=== PATIENT | female | born 1955 ===

== ENCOUNTER 2018-11-18 05:10 | Inpatient (IN) | payer OTHER ==
[~2018-11-18] VITALS: Ht 167.6 cm; Wt 72.6 kg
[2018-11-18] VITALS (17 sets, daily range): BP systolic 115–136; BP diastolic 56–81
[~2018-11-18 05:10] MED LIST: ANASTROZOLE1 MG PO; ASPIR 8181 MG ORAL; ATORVASTATIN CA20 MG ORAL; OXYCODONE HCL10 MG ORAL; OXYCODONE20 MG/1 M1 ORAL; [UNRECOGNIZED DRUG - CODE] PO
[2018-11-18] MEDS ORDERED: HYDROcodone/Acetamin 7.5/325 tab ORAL PRN (06:15)
[2018-11-18] MEDS ORDERED: Hydromorphone 0.5mg/0.5ml inj IVP PRN (06:15)
[2018-11-18] MEDS ORDERED: DiphenhydrAMINE 50mg/ml Inj IVP PRN (06:15)
[2018-11-18] MEDS ORDERED: fentaNYL 100 mcg/2 mL IV PRN (06:15)
[2018-11-18] MEDS ORDERED: Metoclopramide 10mg/2ml Inj IVP PRN (06:15)
[2018-11-18] MEDS ORDERED: LR 1000ml 1,000 ML IVLG SCH (06:15)
[2018-11-18] MEDS ORDERED: Acetaminophen (Non formulary) 100 ML IV SCH (06:15)
[2018-11-18] MEDS ORDERED: LORazepam Inj 2mg/ml 1ml IV PRN (06:15)
[2018-11-18] MEDS ORDERED: Meperidine 50mg/ml Inj(FOR RIGORS ONLY) IVP PRN (06:15)
[2018-11-18] MEDS ORDERED: Ketorolac 30mg Inj IV PRN ×2 (06:15)
[2018-11-18] MEDS ORDERED: Atropine Sulfate 0.4mg/ml inj IVP PRN (06:15)
[2018-11-18] MEDS ORDERED: Midazolam 2mg/2ml Inj IVP PRN (06:15)
[2018-11-18] MEDS ORDERED: Norco 5mg/325mg tab ORAL PRN (06:15)
[2018-11-18] MEDS ORDERED: oxyCODONE HCL/Acetaminophen 5/325mg ORAL PRN (06:15)
[2018-11-18] MEDS ORDERED: Thrombin 5000 units TOPIC ONE ×2 (06:23→07:00)
[2018-11-18] MEDS ORDERED: Lidocaine 1% Plain 30 ml INJ ONE ×3 (06:24→13:17)
[2018-11-18] MEDS ORDERED: Bacitracin 50000 Units Vial ONE (06:24)
[2018-11-18] MEDS ORDERED: Gelfoam Size TOPIC ONE (06:24)
[2018-11-18] MEDS ORDERED: Bupivacaine 0.5% Inj 30 ml vial INJ ONE (06:24)
--- NOTE | 2018-11-18 06:25 | Anethesia Preoperative Eval ---
Anesthesia Pre-op PMH/ROS General Date of Evaluation: Nov 18, 2018 Time of Evaluation: 07:01 Anesthesiologist: Maddie ASA Score: ASA 3 Mallampati Score Class I : Soft palate, uvula, fauces, pillars visible Class II: Soft palate, uvula, fauces visible Class III: Soft palate, base of uvula visible Class IV: Only hard plate visible Mallampati Classification: Class II Surgeon: Wilian Diagnosis: Back Pain Surgical Procedure: L3-4, L4-5 Microdiscectomy, Laminectomy, Fusion Anesthesia History: none Family History: no anesthesia problems Allergies: Coded Allergies: No Known Allergies (Unverified , 11/17/18) Medications: see eMAR Patient NPO?: Yes NPO Date: Nov 17, 2018 NPO Time: 2100 Past Medical History Cardiovascular: Reports: HTN, other - HL Hematology/Immune: Reports: other - L Breast CA-Lumpectomy, Radiation Tx PSxH Narrative: Hemorrhoidectomy, JOAQUIN/BSO, L Breast Lumpectomy Anesthesia Pre-op Phys. Exam Physician Exam Last Vital Signs Date Time Temp Pulse Resp B/P (MAP) Pulse Ox O2 Delivery O2 Flow Rate FiO2 11/18/18 06:03 Room Air 11/18/18 05:52 97.8 71 18 131/69 (89) 100 Constitutional: NAD Neurologic: CN 2-12 intact Cardiovascular: RRR Respiratory: CTA Gastrointestinal: S/NT/ND Airway Exam Mallampati Score: Class II MO: limited ROM: limited Teeth: missing, intact Anesthesia Pre-op A/P Risk Assessment & Plan Assessment: ASA 3 Plan: GA, SED, GlideScope GO Status Change Before Surgery: No Pre-Antibiotics Dru Grams Ancef IV Given Within 1 Hr of Incision: Yes Time Given: 07:16 Robin Perkins MD Nov 18, 2018 06:25
[2018-11-18] MEDS ORDERED: Lidocaine 1% MPF 10mg/ml 5ml ONE ×2 (06:26→09:32)
[2018-11-18] MEDS ORDERED: Dexamethasone 4mg/ml vial ONE (06:26)
[2018-11-18] MEDS ORDERED: Sodium Chloride 10ml vial INJ ONE (06:26)
--- NOTE | 2018-11-18 06:49 | Immediate Post-Op Evaluation ---
Immediate Post-Op Evalulation Immediate Post-Op Evalulation Procedure: L3-4, L4-5 Microdiscectomy, Laminectomy, Fusion Date of Evaluation: Nov 18, 2018 Time of Evaluation: 10:35 IV Fluids: 1000 LR Blood Products: 0 Estimated Blood Loss: 50 Urinary Output: 0 Blood Pressure Systolic: 134 Blood Pressure Diastolic: 80 Pulse Rate: 78 Respiratory Rate: 16 O2 Sat by Pulse Oximetry: 91 Temperature (Fahrenheit): 97.5 Pain Score (1-10): 2 Nausea: No Vomiting: No Complications 0 Patient Status: awake, reacts, patent, extubated, none Hydration Status: adequate Dru Grams Ancef IV Given Within 1 Hr of Incision: Yes Time Given: 07:16 Robin Perkins MD Nov 18, 2018 06:49
[2018-11-18] MEDS ORDERED: LR 1000ml ONE ×2 (07:00)
[2018-11-18] MEDS ORDERED: ceFAZolin sod 1 GM in NS 55 ML IVPB ONE (07:00)
[2018-11-18] MEDS ORDERED: Dexamethasone 20mg/5ml IVP ONE (07:00)
[2018-11-18] MEDS ORDERED: NS Irrig 1000ml ONE (07:00)
[2018-11-18] MEDS ORDERED: Sterile Water Irrig 1000ml IRRIG ONE (07:00)
[2018-11-18] MEDS ORDERED: Propofol 1,000mg/ 100ml btl IV ONE (07:00)
--- NOTE | 2018-11-18 07:01 | Pre-Procedure Note/Attestation ---
Pre-Procedure Note/Attestation Complete Prior to Procedure Planned Procedure: not applicable Procedure Narrative: Laminectomy decompression L3-L4, L4-L5 Posterolateral fusion L3-L4 Indications for Procedure Pre-Operative Diagnosis: Trauma radiculopathy spodylolisthesis Attestation I attest that I discussed the nature of the procedure; its benefits; risks and complications; and alternatives (and the risks and benefits of such alternatives ), prior to the procedure, with the patient (or the patient's legal financial representative). I attest that, if there was a reasonable possibility of needing a blood transfusion, the patient (or the patient's legal financial representative) was given the [place] Department [employer] Services standardized written summary, pursuant to the [place] Blood Safety Act ([place] Health and Safety Code # 1645, as amended). I attest that I re-evaluated the patient just prior to the surgery and that there has been no change in the patient's H&P, except as documented below: Bertrand Cedeno MD Nov 18, 2018 07:01
[2018-11-18] MEDS ORDERED: fentaNYL 100 mcg/2 mL IV ONE ×2 (07:55→12:03)
[2018-11-18] MEDS ORDERED: Neostigmine 1mg/ml 10ml Inj ONE (09:50)
[2018-11-18] MEDS ORDERED: Glycopyrrolate 0.2mg/ml 1ml Vial ONE ×2 (09:50→13:41)
--- NOTE | 2018-11-18 10:43 | Brief Operative Note ---
Immediate Post Operative Note Operative Note Pre-op Diagnosis: Trauma radiculopathy spodylolisthesis Procedure: Laminectomy L3, L4, L5 Posterolateral fusion L3-L4 Xray Magnification Local SSEP Body Habitus Post-op Diagnosis: same as pre-op Findings: consistent w/pre-op dx studies Surgeon: Wilian Ph.D., M.D. Fabric Inspector: Edgar LANE Anesthesiologist: Maddie TRAN Anesthesia: general Specimen: yes Complications: none Condition: stable Fluids: anesthesia Estimated Blood Loss: volume Drains: none Implant(s) used?: No Bertrand Cedeno MD Nov 18, 2018 10:42
[2018-11-18] MEDS ORDERED: Naloxone 0.4mg/ml Inj IVP PRN (10:45)
[2018-11-18] MEDS ORDERED: Albuterol ud Inhalation HHN SCH (12:15)
[2018-11-18] MEDS ORDERED: Labetalol 5mg/ml 20ml vial IV ONE (12:29)
--- NOTE | 2018-11-18 13:39 | NUR ---
NURSE NOTES: Received report from Jocelyne RN, pt a/a/o x4 laying in bed with no signs of distress or other issues at this time. surgical dressing dry and intact. SCD's in place. IS at bed side pt was able to demonstrate back. IV on the right hand gauge#18 running LR, RN will change IVF as indicated by . RN will carry on orders. call light within reach. bed in lowest position. side rales up x2. I will f/u as needed.
--- NOTE | 2018-11-18 13:54 | Diagnostic Imaging Report ---
INDICATION: Pain, intraoperative TECHNIQUE: Intraoperative imaging Fluoroscopy time: 14.1 seconds Total dose: 0.85301 mGym2 Total number of images: One COMPARISON: None FINDINGS: Intraoperative imaging demonstrates surgical tool posterior to what is presumably the L4 vertebral body. IMPRESSION: Intraoperative imaging, as described
[2018-11-18] MEDS: ceFAZolin sod 1 GM in D5W 55 ML IV SCH ×2 (14:39→23:44)
[2018-11-18] MEDS: D5 1/2NS 1,000 ML IV SCH ×2 (14:39→21:23)
[2018-11-18] MEDS ORDERED: Chloraseptic Spray 20mL Bottle ORAL PRN (15:30)
[2018-11-18] MEDS ORDERED: HYDROmorphone 1mg/ml Carpuject SUBQ SCH (15:54)
--- NOTE | 2018-11-18 18:15 | Operative Note - Dictated ---
DATE OF OPERATION: 11/18/2018 SURGEON: Bertrand Cedeno M.D. SWIMMING COACH: DOMINGO Tate. ANESTHESIOLOGIST: Robin Perkins M.D. ANESTHESIA: General with intubation. ADMITTING/PREOPERATIVE DIAGNOSIS: Trauma, radiculopathy, neurologic deficit of lower extremities. POSTOPERATIVE DIAGNOSIS: Trauma, radiculopathy, neurologic deficit of lower extremities. PROCEDURE: 1. The patient's body habitus greater than 95th percentile for height. Local anesthetic applied by surgeon. 2. Intraoperative x-rays interpreted by surgeon. 3. High-powered magnification dissection. 4. Laminectomy L3, L4, L5. 5. Posterolateral fusion, L3-L4. 6. SSEP monitoring. ESTIMATED BLOOD LOSS: 50 mL. DRAINS: None. COMPLICATIONS: None. SPECIMEN: Bony fragments to pathology. DESCRIPTION OF PROCEDURE: The patient was brought to the operating room and in the supine position, general anesthesia with intubation was induced. IV antibiotics, IV Decadron were administered 30 minutes prior to incision time. The patient has carefully turned and positioned on prone position. Lumbodorsal spine was sterilely prepped. Spinal needle was sterilely placed in the subcutaneous tissue only by surgeon and a cross-table imaging was obtained under sterile conditions demonstrating the correct level for incision placement. Needle was removed. Back was re-sterilely prepped and draped free in usual sterile fashion. A longitudinal midline incision over the appropriate interval was sharply placed at the dermis and epidermis. Electrocautery dissection was carried through the subcutaneous tissue to the level of lumbodorsal fascia that was incised right and left of midline over the respective lamina of L3, L4, and L5. Marker was placed. Cross-table imaging obtained confirming levels. Position of the markers recorded, markers removed. High-power magnification, laminectomies of L3, L4, L5 with decompression severe, compression was noted, spondylolisthesis at L3-L4. No dural tears or leaks anytime during the procedure. SSEP monitoring stable at all times. Transverse processes of L3, L4, with isolated confirmed in position with cross-table imaging under sterile conditions, and markers in place. Decorticated over posterior aspects with allograft in combination with osteopromotive material placed between the L3 and L4 transverse processes bilaterally. This was placed after the wound was copiously irrigated with antibiotic-containing saline and the dura was overlying with FloSeal. Sequential reapproximation was undertaken of the paraspinal muscles, lumbodorsal fascia, and subcutaneous tissue with Vicryl suture material. Staple sutures utilized for reapproximation dermis and epidermis. Local anesthetic applied by surgeon to subcutaneous interval between the dermis and subcutaneous tissue bilateral lateral aspects of the wound. Sterile bandage applied maintained in place with tape. The patient was carefully turned from the prone to the supine position on the transport bed where she was awakened, extubated in the operating room, and transported to postop recovery in good stable condition. Bertrand Cedeno M.D. DR: Thiago JOB#: [id number] CC:
--- NOTE | 2018-11-18 19:52 | NUR ---
HAND-OFF: Report given to Winter LANGSTON, pt in stable condition.
[2018-11-18] MEDS: HYDROmorphone 1mg/ml Carpuject SUBQ PRN (21:17)
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
[2018-11-19] MEDS: oxyCODONE 5mg IR tab ORAL PRN ×3 (00:32→22:48)
[2018-11-19] MEDS: D5 1/2NS 1,000 ML IV SCH ×3 (06:43→22:41)
[2018-11-19] MEDS: ceFAZolin sod 1 GM in D5W 55 ML IV SCH (07:30)
--- NOTE | 2018-11-19 07:30 | NUR ---
HAND-OFF: Report given to IVIS Beal.
[2018-11-19 08:26] VITALS: BP 115/74
--- NOTE | 2018-11-19 08:29 | NUR ---
NURSE NOTES: Received report from IVIS Garcia. Pt in bed, awake, talkative, no apparent distress noted, call light within reach, bed in lowest position.
[2018-11-19] MEDS: HYDROmorphone 1mg/ml Carpuject SUBQ PRN ×5 (08:41→20:11)
--- NOTE | 2018-11-19 08:44 | 48 Hour Post Anesthesia Eval ---
Post Anesthesia Evaluation Procedure: L3-4, L4-5 Microdiscectomy, Laminectomy, Fusion Date of Evaluation: Nov 19, 2018 Time of Evaluation: 08:43 Blood Pressure Systolic: 122 0: 64 Pulse Rate: 74 Respiratory Rate: 22 Temperature (Fahrenheit): 97.6 O2 Sat by Pulse Oximetry: 96 Airway: patent Nausea: No Vomiting: No Pain Intensity: 3 Hydration Status: adequate Cardiopulmonary Status: stable Mental Status/LOC: patient returned to baseline Follow-up Care/Observations: n/a Post-Anesthesia Complications: none Follow-up care needed: N/A Vasiliy Angel MD Nov 19, 2018 08:44
--- NOTE | 2018-11-19 11:35 | NUR ---
NURSE NOTES: Notified by PT that pt's has some drainage on sheet from surgical site. 1045: Assessed surgical site, moderate serosanguineous fluid saturating dressing and through pt's gown into bed. Asked for Culinary Instructor Geraldine to also assess site. 1055: Notified Dr. Cedeno of surgical site drainage. Dr. Cedeno ordered pt to be placed on stomach, sterile removal of surgical dressing, cleansed with Betadine, apply 2 abdominal pads folded for 6 thickness, cover with Medipore surgical tape, apply pressure. Pt is on bedrest with only bathroom privileges, hold discharge. 1120: Dressing changed done with Geraldine, mailroom coordinator, well tolerated by pt.
--- NOTE | 2018-11-19 12:12 | NUR ---
P.T Note : late entry 1045 P.T evaluation completed and treatment initiated per spinal protocol. Please refer to P.T evaluation for current functional status. Skilled P.T service is warranted to ensure safety and compliance with spinal precautions in performing functional mobilities. Thank you for this referral. Addendum: noted significant amt. of bloody drainage coming out from dressing post P.T evaluation. RN notified.
[2018-11-19 12:32] VITALS: BP 143/68
--- NOTE | 2018-11-19 15:00 | Progress Note ---
DATE: 11/19/2018 ACUTE PAIN MANAGEMENT PHYSICIAN PROGRESS NOTE MEDICATIONS: Medications administration record reviewed. Medications include Phenergan Chloraseptic spray, oxycodone, Zofran, Narcan, Dilaudid, Pepcid, Benadryl, Soma, Mylanta, Fioricet, Tylenol. LABORATORY STUDIES: No interval laboratory studies. Vital signs within normal limits. Afebrile, pulse 90, respirations 19, blood pressure 136/78, oxygen saturation 98% on supplemental oxygen. I spent over 60 minutes in consultation today. I saw the patient at bedside. I discussed the case with the nurse, IVIS Max. There have been no episodes of respiratory difficulties with this heavy tobacco user on opioid narcotics. She has been receiving Dilaudid injections without any adverse side effects. She also has received Fioricet for headaches along with oral oxycodone 10 mg. All the doses have been well tolerated without any nausea symptoms. I will streamline her medication list to reduce the risk of medication administration errors. I will discontinue Soma and low doses of oxycodone which have not been necessary so far at this time. She will continue on twice a day Pepcid for GI ulcer prophylaxis. The patient will work with physical therapy training. An incentive spirometer usage was encouraged and she will continue with sequential compression pneumatic foot devices for DVT prophylaxis. Her current analgesic regimen appears adequate. She already has a supply of pain medications for home usage. I will continue her IV fluids for now until her diet is well advanced. Overall the patient is progressing well. She will continue with supportive care here in the hospital. Attending discharge planning by the surgeon. The patient is able to sleep at-times without any over sedation noted. Juan Manuel Hernandez M.D. DR: Delia JOB#: [id number] CC:
[2018-11-19] MEDS ORDERED: Tubing IV Secondary IV ONE (15:32)
[2018-11-19] MEDS ORDERED: D5 1/2NS 1000ml IV ONE (15:32)
[2018-11-19 17:06] VITALS: BP 128/67
--- NOTE | 2018-11-19 19:23 | NUR ---
HAND-OFF: Report given to IVIS Betancur.
[2018-11-19 20:00] VITALS: BP 133/66
--- NOTE | 2018-11-19 20:17 | NUR ---
CASE MANAGEMENT:INITIAL REVIEW 63 YO F PRESENTED TO OUR ED FROM HOME CC: BACK PAIN PMHx: BREAST CA. BACK PAIN. SI:SPONDYLOLISTHESIS. T 97.8 HR 71 RR 18 B/P 131/69 SATS 100% ON RA NO LABS TODAY IS: OR MEDS PATIENT ADMITTED TO MED/SURG 11/18/2018 @ 1043 DCP:PATIENT TO BE DISCHARGED TO HOME ONCE MEDICALLY CLEARED. PLAN OF CARE: ADMITTING/PREOPERATIVE DIAGNOSIS: Trauma, radiculopathy, neurologic deficit of lower extremities. POSTOPERATIVE DIAGNOSIS: Trauma, radiculopathy, neurologic deficit of lower extremities. PROCEDURE: 1. The patient's body habitus greater than 95th percentile for height. Local anesthetic applied by surgeon. 2. Intraoperative x-rays interpreted by surgeon. 3. High-powered magnification dissection. 4. Laminectomy L3, L4, L5. 5. Posterolateral fusion, L3-L4. 6. SSEP monitoring. Addendum: 11/21/18 at 0832 by Jaimie Ag CM INTERQAL MET FOR ACUTE
--- NOTE | 2018-11-19 20:32 | NUR ---
NURSE NOTES: Received patient in bed awake and alert x4, no s/s distress noted. Back surgical dressing clean, dry and intact. Due prn pain medication given for pain. Bedside commode placed next to bedside. Bed in lowest position for safety. Call light within reach.
[2018-11-20] VITALS: BP 129/72
[2018-11-20] MEDS: oxyCODONE 5mg IR tab ORAL PRN ×7 (01:48→21:57)
[2018-11-20 04:00] VITALS: BP 134/66
--- NOTE | 2018-11-20 07:15 | NUR ---
HAND-OFF: Report given to Alia LANGSTON.
--- NOTE | 2018-11-20 07:57 | NUR ---
NURSE NOTES: Pt in bed a/o x 4 c/o pain to lower back. Dressing to lower back D/C/I. Pt has intact sensation bilaterally, 2+ pedal pulses, pt able to wiggle toes. R wrist IV site c/d/i running fluids as ordered. IS and BSC at bedside. Discussed with pt care plan for today,and pain management plan. Pt left in bed in low position, call light within reach, skid socks on. Will continue to monitor.
[2018-11-20 08:00] VITALS: BP 133/63
--- NOTE | 2018-11-20 10:50 | NUR ---
NURSE NOTES: Notified Dr. Cedeno the pts surgical site dressing is saturated with serosanguineous drainage, went through 4 layers of abd pads. Wound edges are well approximated, with exception of second to last staple appears to no longer be in place. Per Dr. Cedeno apply betadine, abd pads x2, and medipore tape. Keep on bedrest at 45 degrees. No bed santos, use BSC. No PT today. Pt will stay here today. Flu on discharge tomorrow. Will continue to monitor
[2018-11-20] MEDS ORDERED: Milk of Magnesia 30ml Ud ORAL SCH (11:30)
[2018-11-20 12:00] VITALS: BP 154/69
--- NOTE | 2018-11-20 14:48 | NUR ---
PT notes: patients' on bedrest today as per RN; will follow up next treatment schedule.
[2018-11-20 16:13] VITALS: BP 119/59
--- NOTE | 2018-11-20 16:30 | Progress Note ---
DATE: 11/20/2018 ACUTE PAIN MANAGEMENT PHYSICIAN PROGRESS NOTE: MEDICATIONS: Medication administration record reviewed. Medications include Phenergan, Chloraseptic spray, oxycodone, Zofran, Narcan, Dilaudid, Pepcid, Benadryl, Soma, Mylanta, Fioricet, Tylenol. LABORATORY STUDIES: No interval laboratory studies. OBJECTIVE: VITAL SIGNS: Afebrile, pulse 92, respirations 20, blood pressure 133/63, oxygen saturation 94% on room air. I saw the patient at the bedside with the nurse RN, Alia. I spent over 60 minutes in consultation today. The patient's lumbar spine wound continues to drain somewhat. The surgeon, Dr. Cedeno is well-aware, and has recommended the patient remain in the hospital until the drainage decreases. Dr. Cedeno has placed the patient on bedrest except for bathroom privileges to the commode to help speed the healing time. The patient does still complain of headaches. I have renewed the Fioricet medication. The patient has been using oxycodone 10 mg, which I would continue at its current frequency dosing of every 3 hours p.r.n. The patient has not yet had a bowel movement. She is passing flatus. I have asked the nurse to place prune juice at the bedside and I will also dose her with milk of magnesia, x1 now. The patient has been compliant with her incentive spirometer. She denies any nausea symptoms. There have been no episodes of oxygen desaturation. We will continue supportive care. Watch for decrease in her lumbar wound drainage. Juan Manuel Hernandez M.D. DR: MIRTHA JOB#: [id number] CC:
--- NOTE | 2018-11-20 18:08 | NUR ---
NURSE NOTES: Received call from Dr. Cedeno, states the pt called his line c/o service provided at hospital, that her dressing was dirty and she was "bleeding out." Also that she had pain and we were not taking care of her pain needs. Pts dressing has been checked every hour, dressing is D/C/I, no drainage seeping through. Taniya is witness that dressing is D/C/I. Pain medication has been given q3 hours on the hour, refer to EMR. Discussed with pt calling Dr. Hernandez to discuss potential change in pain medication or increase dose, the patient refuses. She does not want her pain medication changed nor increased. Pt educated to let us know her needs and that she can speak to charge nurse if she feels her needs are not being met. Pt does not want to speak with charge. Educated to not call Dr. Cedeno line (per Dr. Cedeno). Took picture of pts dressing on her phone so she can see herself that her dressing is D/C/I. Pt felt more comfortable after seeing her dressing clean. Will continue to monitor. Pt left in bed in low position, call light within reach, skid socks on. Addendum: 11/20/18 at 1817 by Alia Santana RN Pt has been refusing Dilaudid, states the medication does not help her. Dr. Hernandez made aware during rounds. Per him continue with Roxycodone 10mg q 3 hours, that has been done.
--- NOTE | 2018-11-20 18:58 | NUR ---
Pt in bed a/o x 4. Pt is calm and relaxed using her cell phone. Pt had dinner, tolerated well. Pt left with dressing D/C/I. Pt left in bed in low position, call light within reach, pt close to nurses station.
--- NOTE | 2018-11-20 19:56 | NUR ---
NURSE NOTES:Patient received from Juan Manuel Napier patient denies any pain at this time .no s/s of distress noted .patient RW g#24 H/L patent and intact lower lumbar back dressing C/D/I . Patient on SCDS in placed .patient encourage to use IS when needed And patient tolerated well. Patient pain controlled with pain meds every 3 hrs when needed and with good relief . call light wihin reach . bed in low position at all times.
--- NOTE | 2018-11-20 19:56 | NUR ---
HAND-OFF: Report given to IVIS Llamas. Pt left in stable condition, a/o x 4, dressing D/C/I.
[2018-11-20 20:00] VITALS: BP 132/76
[2018-11-21] VITALS: BP 131/60
[2018-11-21] MEDS: oxyCODONE 5mg IR tab ORAL PRN ×3 (02:12→09:17)
[2018-11-21 04:00] VITALS: BP 130/77
[2018-11-21] MEDS ORDERED: Milk of Magnesia 30ml Ud ORAL PRN (06:00)
--- NOTE | 2018-11-21 06:45 | NUR ---
NURSE NOTES:DR. Hernandez Called with new orders . patient oxygen d/c and use BSC only.as MD ordered.
[2018-11-21] MEDS ORDERED: Magnesium Citrate Liq Btl ORAL PRN (07:30)
--- NOTE | 2018-11-21 07:33 | NUR ---
HAND-OFF: Report given to Liz patient in stable condition.
--- NOTE | 2018-11-21 07:56 | NUR ---
NURSE NOTES: Patient alert x4, on room air, no sign of distress and shortness of breathing. No sign of chest pain. Dressing at the Laminectomy dry and intact, will change if dressing soiled. Order received by PM nurseArtur to put patient on Room air, and also to use only bed side commod and No bathroom privilege. Bed alarm on, at lowest position, side rails up x2, breaks engaged. IV at Right wrist, flushes well. Will give pain medications as order. Call light within reach, will keep monitoring.
[2018-11-21 08:00] VITALS: BP 138/76
--- NOTE | 2018-11-21 08:30 | Progress Note ---
DATE: 11/21/2018 ACUTE PAIN MANAGEMENT PHYSICIAN PROGRESS NOTE: OBJECTIVE: VITAL SIGNS: Afebrile, pulse 85, respirations 20, blood pressure 131/60, oxygen saturation 95% on room air. LABORATORY STUDIES: No interval laboratory studies. MEDICATIONS: Medication administration record reviewed. Medications include Pepcid, Narcan, Tylenol. PRN medications include Soma, oxycodone 10 mg, Zofran, Dilaudid, Benadryl, Fioricet, Chloraseptic spray, Mylanta, milk of magnesia. I spent over 60 minutes in consultation today. I discussed the case with the overnight nurse and saw the patient at bedside. The patient remained in the hospital yesterday as she had continued drainage from the lumbar spine wound. The surgeon, Dr. Cedeno placed the patient on relative bedrest with only privileges for the bedside commode in order to help reduce the lumbar wound drainage. The drainage has decreased considerably and the nurse just changed the dressing earlier this morning revealing only a small quarter-sized area on the bandage of drainage. Dr. Cedeno will continue to evaluate and decide the best treatment for the lumbar spine wound drainage. The patient is afebrile and has been consistently using her incentive spirometer. The patient is breathing comfortably on room air. The patient is voiding urine well. She used prune juice, but still did not have any bowel movement. I will order a Dulcolax suppository this morning. I have added p.r.n. magnesium citrate. We have also added Colace to her b.i.d. scheduled regimen. The patient's pain levels have been well controlled using the oral oxycodone pills. I have streamlined her medication list and discontinued previous orders for Soma, which have not been necessary so far. The patient will remain on Pepcid b.i.d. while she remains in the hospital. We will continue to advance her ambulation as tolerated with physical therapy training sessions while she remains in the hospital. Juan Manuel Hernandez M.D. DRLori SHANNON JOB#: [id number] CC:
[2018-11-21] MEDS ORDERED: Docusate 100mg/10ml Liq NG SCH (09:00)
--- NOTE | 2018-11-21 10:00 | NUR ---
NURSE NOTES: Patient's IV is out, try to get another IV on her, tried once, patient couldn't allow me to try another one. Charge nurse Mela is aware.
[2018-11-21 12:00] VITALS: BP 116/73
--- NOTE | 2018-11-21 14:02 | NUR ---
CASE MANAGEMENT: REVIEW 11/21/2018 SI:SPONDYLOLISTHESIS. T 98.3 HR 90 RR 19 B/P 116/73 SATS 94% ON 3L/NC NO LABS TODAY IS: PEPCID PO BID MED/SURG STATUS DCP:PATIENT TO BE DISCHARGED TO HOME ONCE MEDICALLY CLEARED. PLAN OF CARE: WOUND CARE
--- NOTE | 2018-11-21 14:48 | NUR ---
NURSE NOTES: I received a discharge order from Dr Cedeno, also ordered OK to discharge patient without Physical Therapy.
--- NOTE | 2018-11-21 15:04 | NUR ---
NURSE NOTES: I called and left a voice message to Dr Hernandez regarding patient's discharge plane and if MD lynn patient to continue with home medications. Waiting for order.
--- NOTE | 2018-11-21 15:23 | NUR ---
NURSE NOTES: Received order from Dr Hernandez, patient to continue home medication upon discharge.
[2018-11-21] MEDS ORDERED: D5 1/2NS 1000ml IV ONE (16:09)
--- NOTE | 2018-11-21 16:30 | NUR ---
NURSE NOTES: Patient left the floor around 1600, accompanied by family member and director nursing service. Patient's surgical cite dressing changed before discharge. Patient's name tag removed upon discharge. Patient's belongings crossed matched and signed by nurse and patient. Printed material given regarding patient's diagnosis and when to seek medical help. Walker and toilet sit given to patient upon discharge.
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
== END 2018-11-21 16:10 | disposition home or self-care (01) | DRG 460 ==
LOC: SDSOVERFLO 05:10 → 3E 13:13
PROC: 01NB0ZZ Release Lumbar Nerve, Open Approach (ICD-10-PCS; principal; 2018-11-18 07:00)
PROC: 4A11X4G Monitoring of Peripheral Nervous Electrical Activity, Intraoperative, External Approach (ICD-10-PCS; principal; 2018-11-18 07:00)
PROC: 0SG00K1 Fusion of Lumbar Vertebral Joint with Nonautologous Tissue Substitute, Posterior Approach, Posterior Column, Open Approach (ICD-10-PCS; principal; 2018-11-18 07:00)
DX: M54.16 Radiculopathy, lumbar region (principal); M53.2X6 Spinal instabilities, lumbar region; E66.9 Obesity, unspecified; Z68.25 Body mass index [BMI] 25.0-25.9, adult; G89.18 Other acute postprocedural pain; R51 Headache; E78.5 Hyperlipidemia, unspecified; Z85.3 Personal history of malignant neoplasm of breast; Z87.891 Personal history of nicotine dependence; R94.31 Abnormal electrocardiogram [ECG] [EKG]
CPT/HCPCS: 36415; 72020; 76000; 86850; 86900; 86901; 87081; 94003; 94150; J2405; J2710